=== PATIENT | male | born 1940 | race Caucasian/White ===

== ENCOUNTER → 2019-07-11 | Outpatient (CLI) | payer MEDICARE ==
[2019-07-11 11:54] LABS: African American GFR (CKD) >90 (>60 ml/min/1.73 sqM); Anion Gap 6 mmol/L; Blood Urea Nitrogen 21 mg/dL (9-20); Carbon Dioxide 26 mmol/L (22-30); Chloride 107 mmol/L (98-107); Potassium 4.6 mmol/L (3.5-5.1); Sodium 139 mmol/L (137-145)
[2019-07-11 12:00] LABS: Basophils % (A) 1 %; Eosinophils # (A) 0.1 k/uL (0-0.7); Eosinophils % (A) 1 %; HCT 45.2 % (39.0-53.0); HGB 15.4 gm/dL (13.0-17.5); Lymphocytes # (A) 1.4 k/uL (1.0-4.8); Lymphocytes % (A) 22 %; MCH 31.6 pg (25.0-35.0); Mean Platelet Volume 7.2; Monocytes # (A) 0.3 k/uL (0-1.0); Monocytes % (A) 5 %; Neutrophils # (A) 4.4 k/uL (1.3-7.7); Neutrophils % (A) 70 %; Platelet Count 198 k/uL (150-450); RBC 4.86 m/uL (4.30-5.90); RDW 12.4 % (11.5-15.5); WBC 6.3 k/uL (3.8-10.6)
== END | disposition home or self-care (01) ==
LOC: LABWHC1 10:15
PROVIDERS: ATTEND Internal Medicine Interventional Cardiology
DX: Z01.812 Encounter for preprocedural laboratory examination (principal); R94.39 Abnormal result of other cardiovascular function study
CPT/HCPCS: 36415; 80051; 82565; 84520; 85025

== ENCOUNTER → 2019-07-27 | Day surgery (SDC) | payer MEDICARE ==
[2019-07-25 15:07] VITALS: BMI 25.3
[~2019-07-27] MED LIST: ALPRAZolam 0.25 MG TAB PO PRN; ALPRAZolam 0.5 MG TAB PO PRN; ASPIRIN 325 MG TAB PO STA; ATORVASTATIN 80 MG TAB PO STA; HEPARIN SODIUM 1,000 UN/ML (10ML VL) IV ONE; HEPARIN SODIUM 1,000 UN/ML (10ML VL) ONE; IOPAMIDOL-370 100ML BTL INJ ONE; LIDOCAINE 1% INJ 10MG/ML (20 ML MDV) ONE; LIDOCAINE 1% INJ 10MG/ML (20 ML MDV) SQ ONE; MIDAZOLAM 2 MG/2 ML VIAL IV ONE; NITROGLYCERIN SL TABS 0.4 MG TAB SUBLINGUAL PRN; SODIUM CHLORIDE 0.9% 1,000 ML IV SCH; SODIUM CHLORIDE 0.9% 1,000 ML in EMPTY BAG 1 BAG IV ONE; VERAPAMIL 2.5 MG/ML 2 ML AMP ONE
[2019-07-27 07:10] VITALS: RESP 18; TEMP 98
[2019-07-27] MEDS: VERAPAMIL SYRINGE (5 MG/10 ML) INTRAARTER ONE ×3 (07:55→08:12)
--- NOTE | 2019-07-27 12:03 | CC ---
CARDIAC CATHETERIZATION REPORT DATE OF SERVICE: 07/27/2019 PROCEDURE: Left heart catheterization and coronary angiography and left ventriculography. PERFORMED BY: Dr. Zenobia Flores Moderate conscious sedation time was 26 minutes. CLINICAL INFORMATION: Mr. Junior Swanson is a 78-year-old gentleman history of hypertension, hypercholesterolemia who has been having nondescript chest tightness, pressure, had an abnormal stress test with evidence of questionable inferior wall hypokinesia with also a fixed defect with partial reversibility. Given this, he was advised coronary angiography. Risks, benefits, options, rationale were explained. PROCEDURE NOTE: Under local anesthesia and strict aseptic precautions, a 6-Cymraes introducer was placed in the right radial artery. Using a 3.5 left and 4.0 right Robert catheters, I performed selective coronary angiography and a pigtail catheter was used to check LV pressure and LV gram was performed in 30 degree LEES projection. Patient tolerated the procedure well without complication. The sheath was taken out and TR band applied as per protocol with good saturation of the fingers of the right hand of more than 90%. CARDIAC CATHETERIZATION FINDINGS: 1. Left ventricle end-diastolic pressure was about 8 mmHg. No gradient across the aortic valve. 2. LEFT VENTRICULOGRAM: This was performed in 30 degree LEES projection, revealed left ventricle is of normal size with good systolic function, ejection fraction 55% without mitral regurgitation. 3. CORONARY ANGIOGRAPHY FINDINGS: RIGHT CORONARY ARTERY: Dominant vessel, no significant disease, distally bifurcates into a large PDA and PLV has minor irregularities. LEFT MAIN CORONARY ARTERY: Short, patent, disease-free vessel that immediately bifurcates into LAD and circumflex. 1. LEFT ANTERIOR DESCENDING CORONARY ARTERY: Good caliber vessel, gives off septal and diagonal branches. No significant disease, supplies a sizable amount of myocardium. 2. LEFT POSTERIOR CIRCUMFLEX CORONARY ARTERY: A nondominant vessel, good-sized obtuse marginal. No significant disease, minor irregularities. FINAL IMPRESSION: This patient has normal filling pressures. No gradient across the aortic valve. Left ventricular systolic function is well preserved without any significant mitral regurgitation. He has a right dominant system, no significant obstructive coronary artery disease. RECOMMENDATIONS: Findings were discussed with the patient and . I am recommending continued risk factor modification and medical therapy. No intervention necessary. Patient does not have any significant obstructive CAD. MMODL / IJN: [id number] /
[2019-07-27 15:16] VITALS: BP 125/63; PULSE 54
== END ==
LOC: CATHCVL 06:35
PROVIDERS: ATTEND Internal Medicine Interventional Cardiology
DX: I20.0 Unstable angina (principal); R94.39 Abnormal result of other cardiovascular function study; R00.2 Palpitations; I10 Essential (primary) hypertension; M19.90 Unspecified osteoarthritis, unspecified site; E78.00 Pure hypercholesterolemia, unspecified; E78.5 Hyperlipidemia, unspecified; F17.210 Nicotine dependence, cigarettes, uncomplicated; Z79.82 Long term (current) use of aspirin; Z79.899 Other long term (current) drug therapy
CPT/HCPCS: 93458; C1769; C1894; J2250; J2001; J1644; Q9967

== ENCOUNTER → 2023-10-26 | Outpatient (CLI) | payer MEDICARE ==
[2023-10-26 16:30] LABS: Appearance,Urine Clear (Clear); Bilirubin,Urine Small (Negative); Blood,Urine Negative (Negative); Color,Urine Dark Yellow (Yellow); Ketones,Urine Trace (Negative); Nitrite,Urine Negative (Negative); Specific Gravity,Urine 1.028 (1.001-1.030)
[2023-10-26 16:39] LABS: Bacteria,Urine None Seen (None Seen); Calcium Oxalate Crystals,Urine Present (None Seen)
[2023-10-26 16:48] LABS: Basophils # (A) 0.05 X 10*3/uL (0.00-0.10); Basophils % (A) 0.7 %; Eosinophils # (A) 0.18 X 10*3/uL (0.04-0.35); Eosinophils % (A) 2.5 %; HCT 46.2 % (39.6-50.0); HGB 15.2 g/dL (13.0-17.0); Lymphocytes # (A) 1.73 X 10*3/uL (0.90-5.00); Lymphocytes % (A) 23.7 %; MCH 31.1 pg (27.0-32.0); MCHC 32.9 g/dL (32.0-37.0); MCV 94.7 FL (80.0-97.0); Monocytes # (A) 0.52 X 10*3/uL (0.20-1.00); Monocytes % (A) 7.1 %; NRBC Per 100 WBC 0 X 10*3/uL (0.00-0.01); Neutrophils # (A) 4.77 X 10*3/uL (1.80-7.70); Neutrophils % (A) 65.5 %; Platelet Count 206 X 10*3/uL (140-440); RBC 4.88 X 10*6/uL (4.40-5.60); RDW 12.6 % (11.5-14.5); WBC 7.29 X 10*3/uL (4.50-10.00)
[2023-10-26 16:54] LABS: BUN/Creat Ratio 24.73 Ratio (12.00-20.00); Blood Urea Nitrogen 27.2 mg/dL (9.0-27.0); Calcium 9.4 mg/dL (8.7-10.3); Carbon Dioxide 28.2 mmol/L (21.6-31.8); Chloride 105 mmol/L (96-109); Glucose 92 mg/dL (70-110); Potassium 4.5 mmol/L (3.5-5.5); Sodium 139 mmol/L (135-145)
== END | disposition home or self-care (01) ==
LOC: LABPAT 11:21
PROVIDERS: ATTEND Urology
DX: Z01.812 Encounter for preprocedural laboratory examination (principal); R97.20 Elevated prostate specific antigen [PSA]
CPT/HCPCS: 36415; 80048; 81001; 85025; 87086